=== PATIENT | female | born 1965 | race Caucasian/White ===

== ENCOUNTER → 2016-06-17 | Outpatient (CLI) | payer OTHER ==
[2015-04-30 12:22] VITALS: BP 126/84
[~2016-06-17] MED LIST: BUTA1CAP30 PO; DICY20TA30 PO; HYDR-2666 PO; NADO40TA PO; OMEP40CA5 PO; ONDA8TAB9 PO; OXYB5TAB7 PO; PROM25TA10 PO; SUMA100T3 PO
[2016-06-17 08:21] LABS: BASO # 0.1 x10^3/uL (0.0-0.2); BASO % 1 % (0-3); EOS % 3 % (0-3); HEMATOCRIT 40.2 % (36.0-47.0); HEMOGLOBIN 13.4 g/dL (12.0-15.5); LYMPH # 1.7 x10^3/uL (1.0-4.8); LYMPH % 27 % (24-48); MEAN CORPUSCULAR HEMOGLOBIN 29 pg (25-35); MEAN CORPUSCULAR HGB CONC 33 g/dL (31-37); MEAN CORPUSCULAR VOLUME 87 fL (79-100); MONO % 6 % (0-9); NEUT % 63 % (31-73); PLATELET COUNT 296 x10^3/uL (140-400); RED BLOOD COUNT 4.63 x10^6/uL (3.50-5.40); WHITE BLOOD COUNT 6.3 x10^3/uL (4.0-11.0)
[2016-06-17 08:43] LABS: ALBUMIN 3.5 g/dL (3.4-5.0); CALCIUM 8.8 mg/dL (8.5-10.1); CHOLESTEROL/HDL RATIO 6.6; CREATININE 0.7 mg/dL (0.6-1.0); GFR 88.2; POTASSIUM 3.9 mmol/L (3.5-5.1); TOTAL BILIRUBIN 0.4 mg/dL (0.2-1.0); TOTAL PROTEIN 7.1 g/dL (6.4-8.2)
--- NOTE | 2016-06-17 08:43 | RAD ---
Bilateral hands, 6 views, 06/17/2016: History: Arthritis Comparison is made to a study from 04/06/2015. There is mild narrowing of scattered interphalangeal joints with only minimal marginal spurring. There are mild degenerative changes at the first CMC joints bilaterally. No bone erosions are seen. No fracture or dislocation is evident. IMPRESSION: 1. Mild degenerative changes as described above. 2. No acute bony abnormality is detected.
== END | disposition home or self-care (01) ==
LOC: LAB 08:01
PROVIDERS: ATTEND Family Medicine
DX: M06.4 Inflammatory polyarthropathy (principal); E78.4 Other hyperlipidemia; K21.9 Gastro-esophageal reflux disease without esophagitis; M79.1 Myalgia
CPT/HCPCS: 36415; 73130; 80053; 80061; 85027; 85651; 86431

== ENCOUNTER → 2016-07-29 | Outpatient (CLI) | payer OTHER ==
[2015-04-30 12:22] VITALS: BP 126/84
--- NOTE | 2016-07-29 13:11 | RAD ---
DATE: 07/29/2016 EXAM: DIGITAL SCREEN BILAT W/CAD HISTORY: Routine screening COMPARISON: 12/03/2012 This study was interpreted with the benefit of Computerized Aided Detection (CAD). FINDINGS: The breasts are heterogeneously dense. This can reduce the sensitivity of mammography. No new or enlarging breast densities are seen. Benign type calcifications are present in both breasts. No suspicious microcalcifications have developed. IMPRESSION: Stable mammograms without evidence of malignancy. BI-RADS CATEGORY: 2 BENIGN FINDING(S) RECOMMENDED FOLLOW-UP: 12M 12 MONTH FOLLOW-UP PQRS compliance statement: Patient information was entered into a reminder system with a target due date for the next mammogram. Mammography is a sensitive method for finding small breast cancers, but it does not detect them all and is not a substitute for careful clinical examination. A negative mammogram does not negate a clinically suspicious finding and should not result in delay in biopsying a clinically suspicious abnormality. "Our facility is accredited by the [employer] Mammography Program."
== END | disposition home or self-care (01) ==
LOC: MAMMO 08:05
PROVIDERS: ATTEND Family Medicine
DX: Z12.31 Encounter for screening mammogram for malignant neoplasm of breast (principal)
CPT/HCPCS: G0202; 77067

== ENCOUNTER → 2016-10-28 | Day surgery (SDC) | payer OTHER ==
[~2016-10-28] MED LIST changes: +CYCL10TA2 PO; -HYDR-2666 PO; +HYDR-2758 PO; +HYDR200T PO; +HYDROmorphone 2 MG/ML VIAL IV PRN; +IV RINGERS,LACTATED 1000ML 1,000 ML IV SCH; +LIDOCAINE 1% 1 ML SYRINGE. ID PRN; +LIDOCAINE 2% PF Vial for OR 5 ML VIAL. ONE; +MORPHINE SULFATE 2 MG/ML DISP.SYRIN. IV PRN; +OMEG1CAP38 PO; +ONDANSETRON PF 4 MG/2 ML VIAL. IV PRN; +PROPOFOL 20 ML IV ONE; +TIZA4TAB PO; +fentaNYL PF VIAL 100 MCG/2 ML VIAL IV PRN
[2016-10-28 10:05] VITALS: BP 139/78
--- NOTE | 2016-10-29 04:27 | CONS ---
DATE OF CONSULTATION: 10/28/2016 REFERRING PHYSICIAN: Sarita Oliver MD. HISTORY OF PRESENT ILLNESS: This is a 51-year-old female whose past medical history is significant for colon polyps as well as endometriosis, hyperlipidemia, migraines and recurrent dysphagia with xerostomia who was seen in further evaluation. She has difficulty swallowing solids and/or pills; denies any difficulties with liquids. Weight and appetite have been stable. Minimal heartburn has been controlled with Gaviscon and other OTC remedies. With the continued symptoms and esophageal spasm, she requests additional evaluation. No family history of esophageal dysmotility or CREST syndrome or other connective tissue disorders is noted at this time although she has xerostomia, but not Sjogren syndrome per Rheumatology. PAST MEDICAL HISTORY: Hyperlipidemia, history of colonic polyps, migraine headaches, dysphagia. ALLERGIES: PROCHLORPERAZINE. MEDICATIONS: Fioricet, cyclobenzaprine, doxycycline, hydrocodone, hydroxychloroquine sulfate, ____, omeprazole, Zofran, oxybutynin, promethazine, Imitrex and tizanidine. SOCIAL HISTORY: She is a former smoker. She is a social drinker. FAMILY HISTORY: Significant for cardiomyopathy with her father, diabetes, heart disease with her mother. REVIEW OF SYSTEMS: Per records. PAST SURGICAL HISTORY: Hysterectomy, laparoscopic cholecystectomy, tonsillectomy. PHYSICAL EXAMINATION: GENERAL: Reveals a well-nourished, well-developed female. VITAL SIGNS: Temperature is 97.6, pulse is 80, respirations 18. HEENT: Normocephalic and atraumatic head. Pupils and extraocular muscles not tested. Sclerae anicteric. NECK: Supple. LUNGS: Clear. CARDIOVASCULAR: Reveals S1, S2 without S3, S4 or appreciable murmur. ABDOMEN: Soft abdomen, normal bowel sounds, without appreciable hepatosplenomegaly. EXTREMITIES: Reveals no cyanosis, clubbing or edema. IMPRESSION: Dysphagia with xerostomia. Differential includes CREST syndrome, achalasia, Zepeda's, gastroesophageal reflux disease; therefore recommended upper endoscopy, possible biopsy and dilatation. If this is unhelpful, an esophagogram, esophageal motility study and empiric trial of sublingual nitroglycerin for the spasms may be pursued. I would like to thank Dr. Sarita Oliver for allowing us to consult and participate in patient's care. JOHANNA ROBERTS MD DR: Adia JOB#: [id number] / [id number]
== END | disposition home or self-care (01) ==
LOC: SURG 08:01
PROVIDERS: ATTEND Internal Medicine Gastroenterology
DX: K22.2 Esophageal obstruction (principal); K29.51 Unspecified chronic gastritis with bleeding; K31.7 Polyp of stomach and duodenum; E78.00 Pure hypercholesterolemia, unspecified; M19.90 Unspecified osteoarthritis, unspecified site; F17.200 Nicotine dependence, unspecified, uncomplicated; Z90.49 Acquired absence of other specified parts of digestive tract; Z90.710 Acquired absence of both cervix and uterus; Z72.89 Other problems related to lifestyle; Z98.890 Other specified postprocedural states; Z88.8 Allergy status to other drugs, medicaments and biological substances
CPT/HCPCS: 43235; 43450; J2704

== ENCOUNTER → 2016-11-03 | Outpatient (CLI) | payer OTHER ==
[2016-10-28 10:05] VITALS: BP 139/78
[~2016-11-03] MED LIST changes: +BARIUM SULFATE 340 GM SUSPENSION. PO ONE; +BARIUM SULFATE 60% 355 ML SUSP PO ONE; -HYDROmorphone 2 MG/ML VIAL IV PRN; -IV RINGERS,LACTATED 1000ML 1,000 ML IV SCH; -LIDOCAINE 1% 1 ML SYRINGE. ID PRN; -LIDOCAINE 2% PF Vial for OR 5 ML VIAL. ONE; -MORPHINE SULFATE 2 MG/ML DISP.SYRIN. IV PRN; -ONDANSETRON PF 4 MG/2 ML VIAL. IV PRN; -PROPOFOL 20 ML IV ONE; +SIMETHICONE/SOD BICARB/CITRIC ACID PACKET. PO ONE; -fentaNYL PF VIAL 100 MCG/2 ML VIAL IV PRN
--- NOTE | 2016-11-03 09:04 | RAD ---
Esophagram, 11/03/2016: History: Dysphasia The study was performed utilizing high density and regular density liquid barium. 2.5 minutes of fluoroscopy time was utilized. 9 static and dynamic fluoroscopic sequences were recorded. There is no obstruction to flow of the barium through the cervical esophagus. There are mild posterior impressions upon the cervical esophagus due to small anterior lower cervical spurs. The esophageal peristalsis is normal. No esophageal mass is evident. There is a small sliding-type hiatal hernia. There is an associated 13-14 mm Schatzki's ring. A Schatzki's ring of this size may or may not cause obstructive symptoms, depending on the patient's eating habits. No gastroesophageal reflux was demonstrated. IMPRESSION: 1. Small sliding-type hiatal hernia with an associated Schatzki's ring as described above. 2. Otherwise unremarkable esophagram
== END | disposition home or self-care (01) ==
LOC: RAD 08:17
PROVIDERS: ATTEND Internal Medicine Gastroenterology
DX: K22.2 Esophageal obstruction (principal); K44.9 Diaphragmatic hernia without obstruction or gangrene
CPT/HCPCS: 74220

== ENCOUNTER → 2017-10-05 | Outpatient (CLI) | payer OTHER | END | disposition home or self-care (01) | LOC: ECHO 12:44 | DX: R06.00 Dyspnea, unspecified (principal); R06.02 Shortness of breath; R00.2 Palpitations; I10 Essential (primary) hypertension; E78.00 Pure hypercholesterolemia, unspecified | CPT/HCPCS: 93017; 93350 ==

== ENCOUNTER → 2018-09-25 | Outpatient (CLI) | payer OTHER ==
[2016-10-28 10:05] VITALS: BP 139/78
[~2018-09-25] MED LIST changes: -BARIUM SULFATE 340 GM SUSPENSION. PO ONE; -BARIUM SULFATE 60% 355 ML SUSP PO ONE; +CELE200C PO; +GADOBUTROL 10 MMOL/10 ML VIAL IV ONE; -HYDR-2758 PO; +HYDR-2761 PO; -HYDR200T PO; +HYDR200T71 PO; +PROP80CA3 PO; -SIMETHICONE/SOD BICARB/CITRIC ACID PACKET. PO ONE; +TOPI25TA52 PO
--- NOTE | 2018-09-25 13:45 | KCIC ---
EXAMINATION: Magnetic resonance imaging (MRI) of the brain and brainstem without and with contrast 09/25/2018 11:00 AM Magnetic resonance angiography (MRA) of the neck with and without contrast MRA head without contrast HISTORY: Pulsatile tinnitus TECHNIQUE: Multiplanar multi-weighted MRI of the brain and brainstem was performed without and with intravenous contrast using the general brain protocol. Noncontrast [id number] magnetic resonance angiography of the [place] and cervical vasculature was performed. Postcontrast imaging of the cervical vasculature was obtained. Maximum intensity projection images are provided. Contrast information: 8 mL Gadolinium based contrast COMPARISON: None available. FINDINGS: The scalp and calvarium are normal. The superior sagittal sinus demonstrates normal venous flow. The corpus callosum is normal in shape and signal intensity. The posterior fossa is unremarkable. The pituitary and sella are normal. The brainstem and craniocervical junction are unremarkable. A few foci of periventricular and subcortical white matter T2 hyperintensity may be within the range of age-related degenerative changes. Cerebellopontine angle cisterns are normal. No masses are identified. 7th and 8th cranial nerves are normal in course. There is a vascular loop that extends into the right internal auditory canal. Semicircular canals and cochlea appear intact bilaterally. Skull base is normal in appearance. Cisternal segments of the additional cranial nerves appear intact. No suspicious enhancement is identified. Diffusion weighted images reveal no hyperintensities to suggest acute cerebral infarction. The susceptibility weighted sequences reveal no evidence of acute or chronic hemorrhage. The ventricles are normal in size and position without evidence of hydrocephalus. There are no areas of abnormal contrast enhancement. Small mucus retention cyst left maxillary sinus. The visualized portions of the mastoids are unremarkable. The orbits appear normal. Normal flow voids are demonstrated in the carotid arteries and basilar artery. Vascular findings: There is combined origin of the right innominate and left common carotid artery. Left common carotid artery is normal in course and caliber. There is no significant stenosis of the proximal left cervical internal carotid artery at the carotid bifurcation. Right common carotid artery is normal in course and caliber. There is a linear filling defect involving the right proximal cervical internal carotid artery which may represent a dissection. This finding is not confirmed postcontrast enhancement and may be artifactual. No significant stenosis is visualized involving the proximal right cervical internal carotid artery postcontrast menstruation. External carotid arteries are widely patent. Vertebral arteries are normal in course and caliber. Intracranial segments of internal carotid arteries are normal in course and caliber. There is a moderate-sized right posterior communicating artery. Anterior cerebral arteries are normal in course and caliber with A1 segments are identified bilaterally. Middle cerebral arteries are normal in course and caliber with patent sylvian branches. Vertebral arteries are codominant. Posterior inferior cerebellar arteries are normal in course and caliber. Basilar artery is mildly irregular suggestive of intracranial atherosclerotic changes. Superior cerebellar arteries are normal in course and caliber. There is origin of the right posterior cerebral artery. Posterior cerebral arteries are otherwise normal in course and caliber. There is no aneurysm, vascular malformation or high-grade stenosis/large vessel occlusion involving [place]. Superior sagittal sinus is patent. Jugular bulbs appear to be normal in position. Internal cerebral veins and straight sinus are intact. Particular is patent. IMPRESSION: 1. No evidence for acute or subacute ischemia. 2. Normal appearance of the cerebellar pontine angles without suspicious mass. There is a vascular loop possibly from the right anterior inferior cerebellar artery extending into the right internal auditory canal. 3. No evidence for aneurysm, vascular malformation or high-grade stenosis/large vessel occlusion involving [place]. Mild irregularity of the basilar artery may suggest intracranial atherosclerotic changes. 4. No evidence for carotid stenosis. Linear filling defect in the right proximal cervical internal carotid artery does not persist on postcontrast enhanced imaging and may be artifactual. Stenosis calculations for CT, MR, and conventional angiography are based upon measurements of the distal ICA diameter in accordance with the NASCET methodology. Stenosis calculations for carotid ultrasound studies are derived from validated velocity criteria which are known to correlate with the NASCET methodology. Electronically signed by: Carri Gallagher MD (09/25/2018 1:42 PM) [email or web address]
--- NOTE | 2018-09-25 13:45 | KCIC ---
EXAMINATION: Magnetic resonance imaging (MRI) of the brain and brainstem without and with contrast 09/25/2018 11:00 AM Magnetic resonance angiography (MRA) of the neck with and without contrast MRA head without contrast HISTORY: Pulsatile tinnitus TECHNIQUE: Multiplanar multi-weighted MRI of the brain and brainstem was performed without and with intravenous contrast using the general brain protocol. Noncontrast [id number] magnetic resonance angiography of the [place] and cervical vasculature was performed. Postcontrast imaging of the cervical vasculature was obtained. Maximum intensity projection images are provided. Contrast information: 8 mL Gadolinium based contrast COMPARISON: None available. FINDINGS: The scalp and calvarium are normal. The superior sagittal sinus demonstrates normal venous flow. The corpus callosum is normal in shape and signal intensity. The posterior fossa is unremarkable. The pituitary and sella are normal. The brainstem and craniocervical junction are unremarkable. A few foci of periventricular and subcortical white matter T2 hyperintensity may be within the range of age-related degenerative changes. Cerebellopontine angle cisterns are normal. No masses are identified. 7th and 8th cranial nerves are normal in course. There is a vascular loop that extends into the right internal auditory canal. Semicircular canals and cochlea appear intact bilaterally. Skull base is normal in appearance. Cisternal segments of the additional cranial nerves appear intact. No suspicious enhancement is identified. Diffusion weighted images reveal no hyperintensities to suggest acute cerebral infarction. The susceptibility weighted sequences reveal no evidence of acute or chronic hemorrhage. The ventricles are normal in size and position without evidence of hydrocephalus. There are no areas of abnormal contrast enhancement. Small mucus retention cyst left maxillary sinus. The visualized portions of the mastoids are unremarkable. The orbits appear normal. Normal flow voids are demonstrated in the carotid arteries and basilar artery. Vascular findings: There is combined origin of the right innominate and left common carotid artery. Left common carotid artery is normal in course and caliber. There is no significant stenosis of the proximal left cervical internal carotid artery at the carotid bifurcation. Right common carotid artery is normal in course and caliber. There is a linear filling defect involving the right proximal cervical internal carotid artery which may represent a dissection. This finding is not confirmed postcontrast enhancement and may be artifactual. No significant stenosis is visualized involving the proximal right cervical internal carotid artery postcontrast menstruation. External carotid arteries are widely patent. Vertebral arteries are normal in course and caliber. Intracranial segments of internal carotid arteries are normal in course and caliber. There is a moderate-sized right posterior communicating artery. Anterior cerebral arteries are normal in course and caliber with A1 segments are identified bilaterally. Middle cerebral arteries are normal in course and caliber with patent sylvian branches. Vertebral arteries are codominant. Posterior inferior cerebellar arteries are normal in course and caliber. Basilar artery is mildly irregular suggestive of intracranial atherosclerotic changes. Superior cerebellar arteries are normal in course and caliber. There is origin of the right posterior cerebral artery. Posterior cerebral arteries are otherwise normal in course and caliber. There is no aneurysm, vascular malformation or high-grade stenosis/large vessel occlusion involving [place]. Superior sagittal sinus is patent. Jugular bulbs appear to be normal in position. Internal cerebral veins and straight sinus are intact. Particular is patent. IMPRESSION: 1. No evidence for acute or subacute ischemia. 2. Normal appearance of the cerebellar pontine angles without suspicious mass. There is a vascular loop possibly from the right anterior inferior cerebellar artery extending into the right internal auditory canal. 3. No evidence for aneurysm, vascular malformation or high-grade stenosis/large vessel occlusion involving [place]. Mild irregularity of the basilar artery may suggest intracranial atherosclerotic changes. 4. No evidence for carotid stenosis. Linear filling defect in the right proximal cervical internal carotid artery does not persist on postcontrast enhanced imaging and may be artifactual. Stenosis calculations for CT, MR, and conventional angiography are based upon measurements of the distal ICA diameter in accordance with the NASCET methodology. Stenosis calculations for carotid ultrasound studies are derived from validated velocity criteria which are known to correlate with the NASCET methodology. Electronically signed by: Carri Gallagher MD (09/25/2018 1:42 PM) [id number]
== END | disposition home or self-care (01) ==
LOC: KCIC MRI 11:14
PROVIDERS: ATTEND Otolaryngology
DX: H93.A9 Pulsatile tinnitus, unspecified ear (principal)
CPT/HCPCS: 70544; 70549; 70553; A9585

== ENCOUNTER → 2018-12-10 | Outpatient (CLI) | payer OTHER ==
[2016-10-28 10:05] VITALS: BP 139/78
[~2018-12-10] MED LIST changes: -GADOBUTROL 10 MMOL/10 ML VIAL IV ONE
--- NOTE | 2018-12-10 14:07 | KCIC ---
CERVICAL SPINE WO CONTRAST DATE: 12/10/2018 10:15 AM INDICATION: Migraines, neck pain, right upper extremity paresthesias TECHNIQUE: Multiplanar multisequence magnetic resonance imaging of the cervical spine was performed without administration of intravenous contrast using the standard cervical spine protocol. COMPARISON: None. FINDINGS: Reversal of the cervical lordosis centered at C5-6. No acute fracture. Mild multilevel degenerative disc desiccation and disc height loss. Fatty degenerative endplate changes at C6-7. 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 The spinal cord is normal in signal intensity. On the limited views of the cranial cavity and brain, the cerebellum and tu have normal morphology and signal characteristics. No Chiari malformation. No soft tissue abnormality. Normal signal voids are present in the vertebral arteries. C2-3: Moderate facet arthropathy. Mild bilateral neural foraminal narrowing. No spinal stenosis. C3-4: No significant spinal canal stenosis or neural foraminal narrowing. C4-5: Mild facet arthropathy. No significant spinal canal stenosis or neural foraminal narrowing. C5-6: Disc osteophyte complex. Uncovertebral hypertrophy. Mild facet arthropathy. Mild significant spinal stenosis. No significant neural foraminal narrowing. C6-7: Disc osteophyte complex. Uncovertebral hypertrophy. Mild right greater than left neural foraminal narrowing. Mild spinal stenosis. C7-T1: No significant spinal canal stenosis or neural foraminal narrowing. IMPRESSION: Cervical spondylosis, detailed level by level above. Electronically signed by: Gary Weiss MD (12/10/2018 2:04 PM) [email or web address]
== END | disposition home or self-care (01) ==
LOC: KCIC MRI 09:40
PROVIDERS: ATTEND Nurse Practitioner Family
DX: M47.812 Spondylosis without myelopathy or radiculopathy, cervical region (principal); M48.02 Spinal stenosis, cervical region; M53.82 Other specified dorsopathies, cervical region; M12.88 Other specific arthropathies, not elsewhere classified, other specified site; M25.78 Osteophyte, vertebrae; G43.109 Migraine with aura, not intractable, without status migrainosus; N39.41 Urge incontinence
CPT/HCPCS: 72141

== ENCOUNTER → 2018-12-10 | Outpatient (CLI) | payer OTHER ==
[2016-10-28 10:05] VITALS: BP 139/78
[~2018-12-10] MED LIST changes: -TIZA4TAB PO; +TIZA4TAB2 PO
--- NOTE | 2018-12-10 16:43 | KCIC ---
Exam : Carotid Duplex with Grayscale Ultrasound and Spectral and Color Doppler Analysis 12/10/2018 4:38 PM Clinical Indications: Right neck pain. Tinnitus. Comparison study: None available. PQRS Compliance Statement - Stenosis calculations for CT, MR and conventional angiography are based upon measurement of the distal ICA diameter in accordance with the NASCET methodology. Stenosis calculations for carotid ultrasound studies are derived from validated velocity criteria which are known to correlate with the NASCET methodology. Findings: The common, internal and external carotid arteries were examined by grayscale, color and spectral Doppler ultrasound. No significant atherosclerotic plaquing is identified. No visual high-grade stenosis is seen. The following are the velocities and ratios in the carotid arteries on both sides: RIGHT ICA PV: 117cm/sec RIGHT CCA PV: 100cm/sec RIGHT ICA ED: 39cm/sec RIGHT IC/CCPV: Less than 2 RIGHT VERTEBRAL: antegrade flow LEFT ICA PV: 81cm/sec LEFT CCA PV: 87 cm/sec LEFT ICA ED: 30cm/sec LEFT IC/CCPV: Less than 2 LEFT VERTEBRAL: antegrade flow <50% ICA Stenosis: PSV < 125cm/s (EDV < 40cm/s; SVR < 2.0) 50-69% ICA Stenosis: PSV < 125-229cm/s (EDV 40-99cm/s; SVR 2.0-3.9) >70% ICA Stenosis: PSV > 230cm/s (EDV >100cm/s; SVR >4.0) Impression: Normal carotid ultrasound Electronically signed by: James Medina MD (12/10/2018 4:40 PM) [email or web address]
== END | disposition home or self-care (01) ==
LOC: KCIC US 09:46
PROVIDERS: ATTEND Otolaryngology
DX: R51 Headache (principal); H93.19 Tinnitus, unspecified ear; R20.0 Anesthesia of skin
CPT/HCPCS: 93880

== ENCOUNTER → 2020-09-09 | Outpatient (CLI) | payer OTHER ==
[2016-10-28 10:05] VITALS: BP 139/78
[~2020-09-09] MED LIST changes: -NADO40TA PO; +NADO40TA2 PO; +OMEP40CA45 PO; -OMEP40CA5 PO; +OXYB5TAB10 PO; -OXYB5TAB7 PO
--- NOTE | 2020-09-09 15:14 | KCIC ---
EXAM: DUAL ENERGY X-RAY ABSORPTIOMETRY (DEXA). HISTORY: Postmenopausal screening. FINDINGS: The lowest measured T-score is -1.2 in the lumbar spine, based on a bone mineral density of 0.910 g/cm^2. Refer to the worksheets for full detail. No comparison examinations are available. IMPRESSION: 1. Low bone mass. Bone mineral density yields a T-score between -1.0 and -2.5. Fracture risk is incre ased. 2. FRAX report: Not calculated. METHODOLOGY: Dual energy x-ray absorptiometry was performed to measure bone mineral density. The foll owing analysis is based on the 2019 Official Positions of the International Society for Clinical Dens itometry: Measurements of the hips and the average of L1-L4 are preferred. When the spine and/or hip cannot be feasibly measured or interpreted, or in the setting of hyperparathyroidism, distal radial bone minera l density may be measured. The lumbar spine T-score is based on the average bone mineral density of L1-L4. In the setting of art ifact or anatomic abnormality, some lumbar levels may be excluded, and the remaining levels used for calculation. A single lumbar level is not used for diagnosis, and if only a single level is available for assessment, another anatomic site will be used to assign a diagnosis. The hip T-score is based on the bone mineral density measurement of the femoral neck or total proxima l femur of either side, whichever is lowest. Bilateral mean values are not used for diagnosis. The forearm T-score is derived from 33% of the distal radius of the nondominant forearm. Electronically signed by: Rody Whyte MD (09/09/2020 3:11 PM) [id number]
--- NOTE | 2020-09-09 15:42 | KCIC ---
Bilateral digital screening mammograms with 3-D tomosynthesis: Reason for examination: Routine screening. Comparison is made to previous studies dated 09/18/2017 and 07/29/2016. Bilateral mammograms in CC and oblique projections were obtained with 2-D imaging and 3-D tomosynthes is imaging on a Siemens Inspiration unit and reviewed on the workstation. Interpretation was made martin lopez the benefit of CAD. The skin and nipples show no abnormalities. No abnormal axillary lymph nodes are seen. The breast par enchyma is heterogeneously dense. (Breast density: Category C.) There continues be a small nodular de nsity at the 3:00 B position of the right breast which is stable. There are no new dominant masses, s uspicious calcifications or architectural distortion. Benign calcifications are seen bilaterally. Impression: No evidence of malignancy. Recommend routine screening. Your patient's mammogram demonstrates that she has dense breast tissue (breast density category C or D), which could hide abnormalities, and if she has other risk factors for breast cancer that have bee n identified, she might benefit from supplemental screening tests that may be suggested by you as her ordering physician. Dense breast tissue, in and of itself, is a relatively common condition. Therefo re, this information is not provided to cause undue concern, but rather to raise your awareness and t o promote discussion with your patient regarding the presence of other risk factors, in addition to d ense breast tissue. Your patient's mammography results will be sent to her. BI-RAD Category 2: Benign. "Our facility is accredited by the [employer] Mammography Program." This patient's information has been entered into a reminder system for the patient to be notified wit h the results of her examination and a target date for the next mammogram. Electronically signed by: Chasidy Pennington MD (09/09/2020 3:39 PM) [id number]
== END ==
LOC: KCIC MAMMO 14:11
PROVIDERS: ATTEND Family Medicine
DX: Z12.31 Encounter for screening mammogram for malignant neoplasm of breast (principal); Z78.0 Asymptomatic menopausal state; N64.89 Other specified disorders of breast; M89.9 Disorder of bone, unspecified
CPT/HCPCS: 77063; 77067; 77080